=== PATIENT | female | born 1965 | race Two or more races ===

== ENCOUNTER 2019-01-04 21:46 | Emergency (ER) | payer MEDICAID ==
[~2019-01-04] VITALS: Ht 157.5 cm; Wt 82.1 kg
[2019-01-04 22:16] VITALS: BP 124/90
[2019-01-04] MEDS ORDERED: Albuterol ud Inhalation HHN ONE (22:45)
[2019-01-04] MEDS ORDERED: ZITHROMAX250 MG ORAL (22:48)
[2019-01-04] MEDS ORDERED: HYDROCODON-ACE1 EA15 ORAL (22:48)
[2019-01-04] MEDS ORDERED: ALBUTEROL SULF8.5 GM INH (22:48)
--- NOTE | 2019-01-04 22:48 | Emergency Room Report ---
History of Present Illness General Chief Complaint: Headache Source: Patient Present Illness HPI Is a 53-year-old female who is a smoker. She presents with chief complaint of body pain, headache, cough. Ongoing for over a week now. Worse with lying flat. Coughing is causing sore throat. Also with headache. No relief with ibuprofen. Allergies: Coded Allergies: LORATADINE (Verified Allergy, Unknown, 01/04/19) Uncoded Allergies: BENEDRYL (Allergy, Unknown, 01/04/19) Patient History Past Medical History: see triage record, old chart reviewed Past Surgical History: other Pertinent Family History: none Social History: Reports: smoking Last Menstrual Period: 2018 Now: No Immunizations: other Reviewed Nursing Documentation: PMH: Agreed; PSxH: Agreed Nursing Documentation-PMH Past Medical History: No Stated History Review of Systems Eye: Denies: eye pain, blurred vision ENT: Reports: throat pain; Denies: ear pain, nose congestion, throat swelling Respiratory: Reports: cough, shortness of breath, wheezing Cardiovascular: Denies: chest pain, palpitations Gastrointestinal: Denies: abdominal pain, diarrhea, nausea, vomiting Musculoskeletal: Denies: back pain, joint pain Skin: Denies: rash Neurological: Reports: headache; Denies: numbness Endocrine: Denies: increased thirst, increased urine Hematologic/Lymphatic: Denies: easy bruising All Other Systems: negative except mentioned in HPI Physical Exam Vital Signs Date Time Temp Pulse Resp B/P (MAP) Pulse Ox O2 Delivery O2 Flow Rate FiO2 01/04/19 22:07 98.1 77 18 124/90 (101) 95 Room Air Vitals normal Sp02 EP Interpretation: reviewed, normal General Appearance: well appearing, no apparent distress, alert Head: normocephalic, atraumatic Eyes: bilateral eye PERRL, bilateral eye EOMI ENT: hearing grossly normal, normal pharynx Neck: full range of motion, supple, no meningismus Respiratory: chest non-tender, lungs clear, normal breath sounds, other - Coughing with inspiration Cardiovascular #1: regular rate, rhythm, no murmur Gastrointestinal: normal bowel sounds, non tender, no mass, no organomegaly, no bruit, non-distended Musculoskeletal: back normal, gait/station normal, normal range of motion Psychiatric: mood/affect normal Medical Decision Making Diagnostic Impression: Primary Impression: Flu-like symptoms Additional Impression: Cough due to bronchospasm ER Course Presents with flu like illness. She is a smoker with increasing cough. We will put her on antibiotics. No evidence of ACS, PE, dissection to name a few. Will discharge home. Last Vital Signs Date Time Temp Pulse Resp B/P (MAP) Pulse Ox O2 Delivery O2 Flow Rate FiO2 01/04/19 22:16 98.1 18 124/90 95 Room Air 01/04/19 22:07 77 Status: improved Disposition: HOME, SELF-CARE Condition: Stable Scripts Azithromycin* (ZITHROMAX*) 250 Mg Tablet 250 MG ORAL DAILY, #6 TAB 0 Refills Take two tables once daily for 1 day, then one tablet once daily for 4 days. Prov: Ike Nichols MD 01/04/19 Hydrocodone/Acetaminophen 5-325* (HYDROCODONE/ACETAMINOPHEN 5-325*) 1 Each Tablet 1 TAB ORAL Q6H PRN for For Pain, #15 TAB 0 Refills Prov: Ike Nichols MD 01/04/19 Albuterol Sulfate* (ALBUTEROL SULFATE MDI*) 8.5 Gm Hfa.aer.ad 2 PUFF INH Q4H PRN for cough/wheezing, #1 EA 0 Refills Prov: Ike Nichols MD 01/04/19 Additional Instructions: Stop smoking. Increase fluids. Follow-up with your doctor in 7 days. Return if worse. Ike Nichols MD Jan 04, 2019 22:48
[2019-01-04] MEDS ORDERED: PROMETHAZINE-C118 M1 ORAL (22:50)
== END 2019-01-04 23:30 | disposition home or self-care (01) ==
LOC: EMR 23:30
DX: J11.1 Influenza due to unidentified influenza virus with other respiratory manifestations (principal); J98.01 Acute bronchospasm; R05 Cough; F17.200 Nicotine dependence, unspecified, uncomplicated; Z88.8 Allergy status to other drugs, medicaments and biological substances
CPT/HCPCS: 94640; J7512; Z7502; 99284